=== PATIENT | male | born 1995 | race Caucasian/White ===

== ENCOUNTER 2023-01-13 17:24 | Emergency (ER) | payer BC ==
[~2023-01-13] VITALS: Ht 200.7 cm; Wt 190.5 kg
[~2023-01-13 17:24] MED LIST: HYDACE5 PO; PRED10 PO; SERT50; [UNRECOGNIZED DRUG - REMARK]
[2023-01-13 17:32] VITALS: BP 156/99
== END 2023-01-13 18:27 | disposition home or self-care (01) ==
LOC: ER 17:24
DX: R51.9 Headache, unspecified (principal)
CPT/HCPCS: 70450